=== PATIENT | female | born 1965 | race Caucasian/White ===

== ENCOUNTER 2021-05-28 10:39 | Inpatient (IN) ==
[2021-05-28] MEDS ORDERED: IOPAMIDOL 100 ML BOTTLE IV ONE (10:40)
[2021-05-28] MEDS ORDERED: 0.9 % SODIUM CHLORIDE 1,000 ML IV ONE (10:47)
[2021-05-28] MEDS ORDERED: IBUPROFEN 200 MG TABLET PO ONE (11:07)
--- NOTE | 2021-05-28 11:10 | Emergency Department Note ---
SOB HPI General Chief Complaint: Shortness of Breath/Dyspnea Stated Complaint: SOB Time Seen by Provider: 05/28/21 10:45 Source: patient Mode of arrival: ambulatory Limitations: no limitations History of Present Illness HPI Narrative: Narrative: The patient presents with 3 days of worsening shortness of breath. She had diarrhea and mild vomiting before that but that seems to have resolved. She has a worsening nonproductive cough. She is febrile. She took 975 of acetaminophen and 400 mg of ibuprofen approximately 1 hour prior to coming to the ED. She has a general malaise. She has no known pulmonary problems. She denies chest pain or calf pain. She denies any urinary issues. Related Data Home Medications Medication Instructions Recorded Confirmed losartan 100 mg tablet 100 mg 04/25/18 11/20/18 Previous Rx's Medication Instructions Recorded dexamethasone 6 mg tablet 6 mg PO QDAY 3 Days #3 tab 05/26/21 (Decadron) Allergies Allergy/AdvReac Type Severity Reaction Status Date / Time No Known Drug Allergies Allergy Verified 05/28/21 10:43 Review of Systems ROS ROS Narrative: Narrative: All systems ED: reviewed and negative except as stated. [facility] Narrative Patient History Narrative: Narrative: Medical/Surgical/Family History All Active Problems (Updated 05/28/21 @ 13:50 by Daniele Edge MD) Acute bronchitis (Acute) Acute otitis media with effusion of left ear (Acute) COVID-19 (Acute) Pneumonia due to 2019-nCoV (Acute) Hypoxia (Acute) Sepsis (Acute) Medical History (Updated 05/28/21 @ 13:50 by Daniele Edge MD) Acute bronchitis Social History Smoking Status: Never smoker Alcohol Intake Frequency: does not drink Substance Use: does not use Exam Narrative Narrative: Narrative: General Limitations: no limitations General appearance: Present alert; Absent in no apparent distress (Mild respiratory) Head Head: Present atraumatic and normal inspection Eye Eye: Present normal appearance Neck Neck: Present normal inspection, full ROM and trachea midline Chest Chest: Present normal inspection and symmetric chest wall rise Respiratory Respiratory: Present normal lung sounds bilaterally and respiratory distress (Mild) Cardiovascular Cardiovascular: Present normal rhythm and tachycardia; Absent regular rate Adbominal Abdominal: Present soft; Absent distention or tenderness Extremities Extremities: Present normal inspection and full ROM; Absent pretibial edema, calf tenderness or other (Negative Homans' sign) Back Back: Present full ROM Neurological Neurological: Present alert and oriented X3 Psychiatric Psychiatric: Present normal affect and normal mood Skin Skin: Present warm (WNL) and diaphoretic; Absent dry Course Consultations Consultation #1: I spoke with the hospitalist, Dr. Mann. He agreed to admit but asked us to give dexamethasone and remdesivir. Time: 13:47 Vital Signs Vital signs: Vital Signs Temperature 102.2 F H 05/28/21 10:40 Pulse Rate 120 H 05/28/21 10:40 Respiratory Rate 24 H 05/28/21 10:40 Blood Pressure 185/83 05/28/21 10:40 Pulse Oximetry (%) 80 L 05/28/21 10:40 Temperature 102.2 F H 05/28/21 10:40 Pulse Rate 93 H 05/28/21 13:16 Respiratory Rate 19 05/28/21 13:16 Blood Pressure 129/71 05/28/21 13:16 Pulse Oximetry (%) 90 05/28/21 13:16 MDM MDM Narrative Medical decision making narrative: Narrative: The patient presents with a cough, fever, and dyspnea. Based on vital signs, she has SIRS criteria. I suspect infection so I think she is septic. This could be viral or bacterial. We will get a chest x-ray, blood cultures, lactate, and other appropriate labs. We will test for Covid. We will give an extra dose of ibuprofen for the fever. Patient most likely will need to be admitted to the hospital. Lab Data Result diagrams: 05/28/21 11:05 05/28/21 12:51 Labs: Lab Results 05/28/21 05/28/21 05/28/21 Range/Units 11:05 11:05 11:05 WBC 10.4 TNP (4.5-11.0) K/mcL RBC 3.90 TNP (3.59-5.38) M/mcL Hgb 12.4 TNP (11.2-15.7) g/dL Hct 34.7 TNP (34.1-44.9) % MCV 89.0 TNP (80.0-100.0) fL MCH 31.8 TNP (26.0-34.0) pg MCHC 35.7 TNP (31.0-36.0) g/dL RDW 12.8 TNP (11.5-14.5) % Plt Count 190 TNP (140-440) K/mcL MPV 10.8 H TNP (7.4-10.4) fL Neut % (Auto) 89.3 H (38.0-78.0) % Lymph % (Auto) 8.1 L (15.5-49.0) % [place] % (Auto) 1.7 (1.0-12.0) % Eos % (Auto) 0.7 (0.0-7.0) % Baso % (Auto) 0.2 (0.0-2.0) % Lymph # (Auto) 0.84 L (1.50-4.80) K/mcL [place] # (Auto) 0.18 (0.10-0.90) K/mcL Eos # (Auto) 0.07 (0.00-0.70) K/mcL Baso # (Auto) 0.02 (0.00-0.30) K/mcL Seg Neutrophils % 66 (38-78) % Band Neutrophils % 24 H (0-10) % Lymphocytes % 6 L (15-49) % Monocytes % (Manual) 1 (1-12) % Eosinophils % (Manual) 1 (0-7) % Absolute Neutrophils 9.31 H (1.80-8.00) K/mcL Nucleated RBCs TNP Reactive Lymphocytes 2 (0-2) % Platelet Estimate Normal (Normal) RBC Morphology Normal (Normal) D-Dimer 5.13 H (0.27-0.50) ug/mL VBG Lactic Acid (0.5-2.0) mmol/L POC Creatinine (0.6-1.2) mg/dL Troponin T (<0.03) ng/mL NT-Pro-B Natriuret Pep (<125.0) pg/mL 05/28/21 05/28/21 05/28/21 Range/Units 11:05 11:05 11:15 WBC (4.5-11.0) K/mcL RBC (3.59-5.38) M/mcL Hgb (11.2-15.7) g/dL Hct (34.1-44.9) % MCV (80.0-100.0) fL MCH (26.0-34.0) pg MCHC (31.0-36.0) g/dL RDW (11.5-14.5) % Plt Count (140-440) K/mcL MPV (7.4-10.4) fL Neut % (Auto) (38.0-78.0) % Lymph % (Auto) (15.5-49.0) % [place] % (Auto) (1.0-12.0) % Eos % (Auto) (0.0-7.0) % Baso % (Auto) (0.0-2.0) % Lymph # (Auto) (1.50-4.80) K/mcL [place] # (Auto) (0.10-0.90) K/mcL Eos # (Auto) (0.00-0.70) K/mcL Baso # (Auto) (0.00-0.30) K/mcL Seg Neutrophils % (38-78) % Band Neutrophils % (0-10) % Lymphocytes % (15-49) % Monocytes % (Manual) (1-12) % Eosinophils % (Manual) (0-7) % Absolute Neutrophils (1.80-8.00) K/mcL Nucleated RBCs Reactive Lymphocytes (0-2) % Platelet Estimate (Normal) RBC Morphology (Normal) D-Dimer (0.27-0.50) ug/mL VBG Lactic Acid 0.9 (0.5-2.0) mmol/L POC Creatinine (0.6-1.2) mg/dL Troponin T < 0.01 (<0.03) ng/mL NT-Pro-B Natriuret Pep 255.4 H (<125.0) pg/mL 05/28/21 Range/Units 12:51 WBC (4.5-11.0) K/mcL RBC (3.59-5.38) M/mcL Hgb (11.2-15.7) g/dL Hct (34.1-44.9) % MCV (80.0-100.0) fL MCH (26.0-34.0) pg MCHC (31.0-36.0) g/dL RDW (11.5-14.5) % Plt Count (140-440) K/mcL MPV (7.4-10.4) fL Neut % (Auto) (38.0-78.0) % Lymph % (Auto) (15.5-49.0) % [place] % (Auto) (1.0-12.0) % Eos % (Auto) (0.0-7.0) % Baso % (Auto) (0.0-2.0) % Lymph # (Auto) (1.50-4.80) K/mcL [place] # (Auto) (0.10-0.90) K/mcL Eos # (Auto) (0.00-0.70) K/mcL Baso # (Auto) (0.00-0.30) K/mcL Seg Neutrophils % (38-78) % Band Neutrophils % (0-10) % Lymphocytes % (15-49) % Monocytes % (Manual) (1-12) % Eosinophils % (Manual) (0-7) % Absolute Neutrophils (1.80-8.00) K/mcL Nucleated RBCs Reactive Lymphocytes (0-2) % Platelet Estimate (Normal) RBC Morphology (Normal) D-Dimer (0.27-0.50) ug/mL VBG Lactic Acid (0.5-2.0) mmol/L POC Creatinine 1.3 H (0.6-1.2) mg/dL Troponin T (<0.03) ng/mL NT-Pro-B Natriuret Pep (<125.0) pg/mL ED POC Tests ED POC Tests: JANIE - SARS Antigen Negative EKG Data EKG #1: EKG attestation: Yes I reviewed and interpreted this EKG. and Yes There are no EKG findings of acute coronary syndrome EKG results narrative: Sinus, rate 102, normal axis, QTC 494, OK 147, right bundle branch pattern, no acute ST or T changes concerning for acute infarction CC TIME Critical Care Time Critical Care Time: Yes Total Critical Care Time: 65 Attestation: Without intervention, patient would have had a negative outcome Discharge Plan Patient/Caregiver Discharge Instructions Pt seen by SWINE NUTRITIONIST/PA only: No Clinical Impression: COVID-19, Pneumonia due to 2019-nCoV, Hypoxia, Sepsis Patient Disposition: Xfer As Inpt ([facility]) Condition: Critical Follow up with: Dulce Dominguez MD [Primary Care Provider] - Prescriptions: No Action losartan 100 MG tablet 100 mg 0RF dexamethasone [Decadron] 6 mg tablet 6 mg PO QDAY 3 Days Qty: 3 0RF
--- NOTE | 2021-05-28 11:45 | XRay Report ---
INDICATION: dyspnea TECHNIQUE: AP portable upright chest x-ray COMPARISON: Previous examination dated 05/26/2021 FINDINGS: Lungs:Increased infiltrates bilaterally. Appearance remains consistent with covid pneumonia with mild interval progression Heart, vascular:No significant cardiomegaly. Pulmonary vascularity is normal. No pulmonary edema or pulmonary congestion Mediastinum, linda:No mediastinal widening. No hilar mass Pleura:Elevated right hemidiaphragm, essentially unchanged Skeletal:Negative. IMPRESSION: Increased pulmonary parenchymal infiltrates consistent with covid pneumonia Interpreted and Authenticated by: Ming Musa 05/28/21
[2021-05-28 12:14] LABS: Basophils # (Auto) 0.02 K/mcL (0.00-0.30); Basophils % (Auto) 0.2 % (0.0-2.0); Eosinophils # (Auto) 0.07 K/mcL (0.00-0.70); Eosinophils % (Auto) 0.7 % (0.0-7.0); Hematocrit 34.7 % (34.1-44.9); Hemoglobin 12.4 g/dL (11.2-15.7); Lymphocytes # (Auto) 0.84 K/mcL (1.50-4.80); Lymphocytes % (Auto) 8.1 % (15.5-49.0); Mean Corpuscular HGB Conc 35.7 g/dL (31.0-36.0); Mean Platelet Volume 10.8 fL (7.4-10.4); Monocytes # (Auto) 0.18 K/mcL (0.10-0.90); Monocytes % (Auto) 1.7 % (1.0-12.0); Neutrophils % (Auto) 89.3 % (38.0-78.0); Platelet Count 190 K/mcL (140-440); Red Cell Distribution Width 12.8 % (11.5-14.5); WBC 10.4 K/mcL (4.5-11.0)
[2021-05-28 12:24] LABS: proBNP 255.4 pg/mL (<125.0)
--- NOTE | 2021-05-28 12:58 | EKG ---
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
[2021-05-28 13:05] LABS: Band Neutrophils % 24 % (0-10); Eosinophils % (Manual) 1 % (0-7); Lymphocytes % 6 % (15-49); Monocytes % (Manual) 1 % (1-12); Platelet Estimate NORMAL (Normal); RBC Morphology NORMAL (Normal); Reactive Lymphocytes 2 % (0-2); Segmented Neutrophils % 66 % (38-78)
--- NOTE | 2021-05-28 13:17 | Cat Scan Report ---
INDICATION: hypoxic. Covid pneumonia COMPARISON: None TECHNIQUE: Axial images obtained through the chest. 55ml Isovue 370 injected intravenously, and scanning was performed during pulmonary arterial phase. Sagittally and coronally reformatted images were obtained. MIP reformatted images. FINDINGS: Lungs:Bilateral pulmonary parenchymal infiltrates consistent with covid pneumonia. There is a small left pleural effusion which is an atypical finding. Mediastinum, vascular:Main pulmonary artery, right pulmonary artery, left pulmonary artery are negative. No intraluminal filling defects. No lobar, segmental, or subsegmental emboli. Thoracic aorta is negative. No aneurysmal dilatation. Main pulmonary artery is not enlarged No pathologic mediastinal or hilar adenopathy Heart:No cardiomegaly. No pericardial effusion. Mild reflux of contrast material into the inferior vena cava. Pleura:Small left pleural effusion Axilla, supraclavicular regions, chest wall:No pathologic axillary or supraclavicular adenopathy. Musculoskeletal:Negative thoracic spine. No compression fracture. No lytic lesion. No rib or sternal lesions Upper Abdomen:Negative IMPRESSION: 1. Negative pulmonary CTA. No pulmonary embolism 2. Bilateral pulmonary parenchymal infiltrates consistent with covid pneumonia 3. Very small left pleural effusion The exam was performed using radiation dose optimization techniques including, but not limited to, automated exposure control, adjustment of the mA and/or kV according to patient size and use of iterative reconstruction technique. Interpreted and Authenticated by: Ming Musa 05/28/21
[2021-05-28 13:33] LABS: POC Creatinine 1.3 mg/dL (0.6-1.2)
[2021-05-28] MEDS ORDERED: POLYETHYLENE GLYCOL 3350 17 GM PACKET PO PRN (13:46)
[2021-05-28] MEDS ORDERED: POTASSIUM CHLORIDE 40 MEQ in DEXTROSE 5% IN WATER 500 ML IV PRN (13:46)
[2021-05-28] MEDS ORDERED: METOPROLOL TARTRATE 5 MG/5 ML VIAL IV PRN (13:46)
[2021-05-28] MEDS ORDERED: LEVALBUTEROL 0.63 MG/3 ML AMPUL.NEB NEB PRN (13:46)
[2021-05-28] MEDS ORDERED: DEXAMETHASONE 10 MG/ML VIAL IV ONE (13:46)
[2021-05-28] MEDS ORDERED: BISACODYL 10 MG SUPP.RECT PR PRN (13:46)
[2021-05-28] MEDS ORDERED: hydrALAZINE 20 MG/ML VIAL IV PRN (13:46)
[2021-05-28] MEDS ORDERED: ALBUTEROL SULFATE 200 PUFF INHALER INH PRN (13:46)
[2021-05-28] MEDS ORDERED: ONDANSETRON 4 MG ODT TABLET SL PRN (13:46)
[2021-05-28] MEDS ORDERED: REMDESIVIR 200 MG in 0.9 % SODIUM CHLORIDE 250 ML IV ONE ×2 (13:46→16:00)
[2021-05-28] MEDS ORDERED: ACETAMINOPHEN 650 MG/65 ML BAG IV PRN (13:46)
[2021-05-28] MEDS ORDERED: MAGNESIUM SULFATE 2 GM/50 ML BAG IV PRN (13:46)
[2021-05-28] MEDS ORDERED: ONDANSETRON 4 MG/2 ML VIAL IV PRN (13:46)
--- NOTE | 2021-05-28 13:52 | Internal Med History&Physical ---
HPI History of Present Illness Patient information: Note initiated : 05/28/21 at 1:50 pm Service Date, if different from initiated Date: [] Patient: Maryjane Ireland a 55 y/o F admitted on for SOB . Chief Complaint: [] History of present illness: Ms. Ireland is a 55 year old F with a history of hypertension who was recently diagnosed with Covid pneumonia on 05/24 now presents with worsening shortness of breath, fatigue, malaise, associated diarrhea and profound weakness. Patient completed [place] vaccination in June but has not taken a booster yet. She endorses to profound weakness limiting her functionality. Initial work-up in the ER was consistent with hypoxia requiring 4 L oxygen. Patient was started on dexamethasone/remdesivir and agrees for [facility] service was consulted for admission in light of above At the time of my evaluation patient is alert and oriented. She denies active distress and able to endorse history as above. Her symptoms started roughly 10 days prior to presentation with multiple family members affected. She denies joint pain, rash, headache, photophobia, productive sputum Review of systems 10 point review system was performed and is negative except for ones discussed above PFSH PFSH All Active Problems (Updated 05/28/21 @ 13:50 by Daniele Edge MD) Acute bronchitis (Acute) Acute otitis media with effusion of left ear (Acute) COVID-19 (Acute) Pneumonia due to 2019-nCoV (Acute) Hypoxia (Acute) Sepsis (Acute) Medical History (Updated 05/28/21 @ 13:50 by Daniele Edge MD) Acute bronchitis Social History (Updated 11/20/18 @ 11:03 by Eneida Baker PA-C) alcohol intake frequency: does not drink substance use type: does not use MEDS/ALLERGIES Home Medications and Allergies Home Medications Medication Instructions Recorded Confirmed Type losartan 100 mg tablet 100 mg 04/25/18 11/20/18 History dexamethasone 6 mg tablet 6 mg PO QDAY 3 Days #3 tab 05/26/21 Rx (Decadron) Allergies Allergy/AdvReac Type Severity Reaction Status Date / Time No Known Drug Allergies Allergy Verified 05/28/21 10:43 EXAM Constitutional Vitals: Temp Pulse Resp BP Pulse Ox 102.2 F H 85 23 H 140/73 92 05/28/21 10:40 05/28/21 13:47 05/28/21 13:47 05/28/21 13:47 05/28/21 13:47 Anxious, obese with a BMI 34 Head normocephalic Oral cavity moist No ear or nose discharge Eye no subconjunctival pallor, movement symmetrical S1-S2 occasionally irregular Nonlabored breathing on 4 L oxygen to maintain sats 92 Nondistended nontender abdomen Lower extremity no cyanosis clubbing or joint swelling Skin no suspicious lesion Psych anxious but no hallucination Neuro GCS 15 DATA Data Completed and Pending Labs: Labs from last 24 hours 05/28/21 05/28/21 05/28/21 12:51 11:15 11:05 WBC RBC Hgb Hct MCV MCH MCHC RDW Plt Count MPV Neut % (Auto) Lymph % (Auto) [place] % (Auto) Eos % (Auto) Baso % (Auto) Lymph # (Auto) [place] # (Auto) Eos # (Auto) Baso # (Auto) Seg Neutrophils % Band Neutrophils % Lymphocytes % Monocytes % (Manual) Eosinophils % (Manual) Absolute Neutrophils Nucleated RBCs Reactive Lymphocytes Platelet Estimate RBC Morphology D-Dimer VBG Lactic Acid 0.9 Sodium Pending Potassium Pending Chloride Pending Carbon Dioxide Pending Anion Gap Pending BUN Pending Creatinine Pending POC Creatinine 1.3 H GFR Calculation Pending Glucose Pending Calcium Pending Total Bilirubin Pending AST Pending ALT Pending Alkaline Phosphatase Pending Troponin T NT-Pro-B Natriuret Pep 255.4 H Total Protein Pending Albumin Pending Globulin Pending Albumin/Globulin Ratio Pending 05/28/21 05/28/21 05/28/21 11:05 11:05 11:05 WBC TNP RBC TNP Hgb TNP Hct TNP MCV TNP MCH TNP MCHC TNP RDW TNP Plt Count TNP MPV TNP Neut % (Auto) Lymph % (Auto) [place] % (Auto) Eos % (Auto) Baso % (Auto) Lymph # (Auto) [place] # (Auto) Eos # (Auto) Baso # (Auto) Seg Neutrophils % 66 Band Neutrophils % 24 H Lymphocytes % 6 L Monocytes % (Manual) 1 Eosinophils % (Manual) 1 Absolute Neutrophils Nucleated RBCs TNP Reactive Lymphocytes 2 Platelet Estimate Normal RBC Morphology Normal D-Dimer 5.13 H VBG Lactic Acid Sodium Potassium Chloride Carbon Dioxide Anion Gap BUN Creatinine POC Creatinine GFR Calculation Glucose Calcium Total Bilirubin AST ALT Alkaline Phosphatase Troponin T < 0.01 NT-Pro-B Natriuret Pep Total Protein Albumin Globulin Albumin/Globulin Ratio 05/28/21 11:05 WBC 10.4 RBC 3.90 Hgb 12.4 Hct 34.7 MCV 89.0 MCH 31.8 MCHC 35.7 RDW 12.8 Plt Count 190 MPV 10.8 H Neut % (Auto) 89.3 H Lymph % (Auto) 8.1 L [place] % (Auto) 1.7 Eos % (Auto) 0.7 Baso % (Auto) 0.2 Lymph # (Auto) 0.84 L [place] # (Auto) 0.18 Eos # (Auto) 0.07 Baso # (Auto) 0.02 Seg Neutrophils % Band Neutrophils % Lymphocytes % Monocytes % (Manual) Eosinophils % (Manual) Absolute Neutrophils 9.31 H Nucleated RBCs Reactive Lymphocytes Platelet Estimate RBC Morphology D-Dimer VBG Lactic Acid Sodium Potassium Chloride Carbon Dioxide Anion Gap BUN Creatinine POC Creatinine GFR Calculation Glucose Calcium Total Bilirubin AST ALT Alkaline Phosphatase Troponin T NT-Pro-B Natriuret Pep Total Protein Albumin Globulin Albumin/Globulin Ratio A/P Narrative A/P Narrative: * COVID-19 pneumonia-PCU admission/initiate remdesivir/dexamethasone, thrombosis prophylaxis/coag and inflammatory markers, maintain COVID-19 precautions, consent for IL 6 Inhibitor. * Acute hypoxic respiratory failure secondary to Covid pneumonia. Initiate with low flow oxygen/pulmonary toilet/ Prone ventilation and transition to noninvasive mechanical ventilation if deteriorating oxygenation, ABG/interval chest imaging * Acute leg injury-secondary to multifocal pneumonia. * Hypertension-hold home medication until systolics over 140 * Prophylaxis Plan * Inpatient PCU admission * Prone ventilation and NIV if indicated and worsening Covid pneumonia * Serial imaging/ABG/coag inflammatory markers/ * Remdesivir/dexamethasone/empiric antibiotics/thrombosis prophylaxis * Pre-existing medical condition management home meds * Directed therapies/nutrition support/early mobilization * Discharge planning per case management Time Spent With Patient Time: Total time spent is greater than 50% in coordination of care (as documented) at patient's floor/unit and/or counseling patient: Total time spent with greater than 50% in coordination of care (as documented) at patient's floor/unit and/or counseling patient:: Greater than 35 minutes
[2021-05-28 14:27] LABS: ALT/SGPT 110 U/L (<40); AST/SGOT 61 U/L (<32); Albumin/Globulin Ratio 0.9 (1.0-2.3); Alkaline Phosphatase 168 U/L (39-117); Bilirubin,Total 0.4 mg/dL (0.1-1.0); Blood Urea Nitrogen 14 mg/dL (6-20); Calcium 8.2 mg/dL (8.6-10.4); Carbon Dioxide 20 mmol/L (22-30); Chloride 103 mmol/L (96-108); Globulin 3.4 gm/dL (2.2-3.7); Glomerular Filtration Rate 57; Glucose 128 mg/dL (70-105)
[2021-05-28] MEDS: 0.9 % SODIUM CHLORIDE 10 ML SYRINGE IV SCH ×2 (15:59→22:06)
[2021-05-28] MEDS: AZITHROMYCIN 500 MG in DEXTROSE 5% IN WATER 250 ML IV SCH (16:11)
[2021-05-28] MEDS: cefTRIAXone 2 GM in DEXTROSE 5% IN WATER 50 ML IV SCH (16:12)
[2021-05-28] MEDS: FUROSEMIDE 40 MG/4 ML VIAL IV SCH (16:14)
[2021-05-28] MEDS ORDERED: TOCILIZUMAB 800 MG in 0.9 % SODIUM CHLORIDE 60 ML IV ONE (17:00)
[2021-05-28] MEDS: guaiFENesin/CODEINE 10 ML UDC PO PRN (19:37)
[2021-05-28] MEDS ORDERED: HEPARIN 5,000 UNIT/ML VIAL SQ SCH (21:00)
[2021-05-28] MEDS: ENOXAPARIN 30 MG/0.3 ML SYRINGE SQ SCH (21:20)
[2021-05-28] MEDS: MELATONIN 3 MG TABLET PO PRN (21:20)
[2021-05-28] MEDS: DOCUSATE SODIUM 100 MG CAPSULE PO SCH (21:21)
[2021-05-28] MEDS: SENNOSIDES/DOCUSATE SODIUM 1 TAB TABLET PO SCH (21:21)
[2021-05-28] MEDS: ACETAMINOPHEN 325 MG TABLET PO PRN (21:24)
[2021-05-29] MEDS: 0.9 % SODIUM CHLORIDE 10 ML SYRINGE IV SCH ×3 (05:48→21:51)
[2021-05-29 07:22] LABS: Basophils # (Auto) 0.02 K/mcL (0.00-0.30); Basophils % (Auto) 0.3 % (0.0-2.0); Eosinophils # (Auto) 0.02 K/mcL (0.00-0.70); Eosinophils % (Auto) 0.3 % (0.0-7.0); Hematocrit 34.9 % (34.1-44.9); Hemoglobin 12.3 g/dL (11.2-15.7); Lymphocytes # (Auto) 0.81 K/mcL (1.50-4.80); Lymphocytes % (Auto) 10.7 % (15.5-49.0); Mean Cell Volume 91.8 fL (80.0-100.0); Mean Corpuscular HGB Conc 35.2 g/dL (31.0-36.0); Mean Platelet Volume 10.8 fL (7.4-10.4); Monocytes # (Auto) 0.09 K/mcL (0.10-0.90); Monocytes % (Auto) 1.2 % (1.0-12.0); Platelet Count 195 K/mcL (140-440); Red Cell Distribution Width 13.1 % (11.5-14.5); WBC 7.6 K/mcL (4.5-11.0)
[2021-05-29] MEDS: FUROSEMIDE 40 MG/4 ML VIAL IV SCH ×2 (07:40→16:32)
[2021-05-29 07:47] LABS: ALT/SGPT 103 U/L (<40); AST/SGOT 48 U/L (<32); Albumin 3.1 gm/dL (3.2-5.2); Albumin/Globulin Ratio 0.8 (1.0-2.3); Alkaline Phosphatase 159 U/L (39-117); Bilirubin,Direct < 0.2 mg/dL (0-0.3); Bilirubin,Total 0.2 mg/dL (0.1-1.0); Blood Urea Nitrogen 21 mg/dL (6-20); Carbon Dioxide 25 mmol/L (22-30); Chloride 103 mmol/L (96-108); Globulin 3.9 gm/dL (2.2-3.7); Glomerular Filtration Rate 63; Glucose 141 mg/dL (70-105); Lactate Dehydrogenase 385 U/L (135-225); Phosphorous 4.5 mg/dL (2.5-4.5); Triglycerides 198 mg/dL (<150); Uric Acid 6.4 mg/dL (2.5-8.0)
--- NOTE | 2021-05-29 09:20 | Internal Med Progress Note ---
SUBJECTIVE Subjective Patient information: Note initiated : 05/29/21 at 9:17 am Service Date, if different from initiated Date: [] Patient: Maryjane Ireland a 55 y/o F admitted on 05/28/21 for SOB . Chief Complaint: [] Interval history: Ms. Ireland is a 55 year old F with a history of hypertension who was recently diagnosed with Covid pneumonia on 05/24 now presents with worsening shortness of breath, fatigue, malaise, associated diarrhea and profound weakness. Patient completed [place] vaccination in June but has not taken a booster yet. She endorses to profound weakness limiting her functionality. Initial work-up in the ER was consistent with hypoxia requiring 4 L oxygen. Patient was started on dexamethasone/remdesivir and agrees for [facility] service was consulted for admission in light of above At the time of my evaluation patient is alert and oriented. She denies active distress and able to endorse history as above. Her symptoms started roughly 10 days prior to presentation with multiple family members affected. She denies joint pain, rash, headache, photophobia, productive sputum 05/29-patient seen in room, on 5 L oxygen. Appears stable with minimal worsening of hypoxia since admission. Status post Actemra 05/28, on remdesivir/dexamethasone. Creatinine down from 1.3-1, LFTs elevated downtrending. Procalcitonin 1.61, continue antibiotic coverage. Close hemodynamic monitoring. Constitutional Vitals: Vital Signs Temp Pulse Resp BP Pulse Ox 98.5 F 87 20 121/76 94 05/29/21 08:17 05/29/21 08:17 05/29/21 08:17 05/29/21 05:01 05/29/21 08:17 Period Temp Pulse Resp BP Sys/Lott Pulse Ox Last 24 Hr 96.9 F-102.2 F 70-120 19-32 99-185/67-83 80-95 Intake and Output 05/28/21 05/29/21 05/29/21 21:59 05:59 13:59 Intake Total 400 120 Output Total 1950 250 350 Balance -1550 -250 -230 Weight 93.894 kg Morbidly obese Alert oriented Minimal labored breathing on 5 L oxygen No telemetry events No lymphedema Intake & Output: Intake & Output 05/28/21 05/29/21 05/29/21 21:59 05:59 13:59 Intake Total 400 120 Output Total 1950 250 350 Balance -1550 -250 -230 Weight 93.894 kg Intake: IV 400 Veklury 200 mg In Sodium 250 Chloride 0.9% 250 ml @ 500 mls/ hr IV ONCE ONE Rx#:[id number] Actemra 800 mg In Sodium 100 Chloride 0.9% 60 ml @ 100 mls/ hr IV ONCE ONE Rx#:[id number] Rocephin 2 gm In Dextrose 5% in 50 Water 50 ml @ 100 mls/hr IV DAILY [facility] Rx#:[id number] Oral 120 Output: Void Amount 1950 250 Urine/Stool Mix 350 Other: Meal Breakfast Percent of Meal Consumed 100% Feeding Ability Independent Urine Appearance Clear Clear Urine Color Bright Yellow Dark Yellow Stool Color Brown Stool Consistency Liquid OBJ DATA Labs CBC & Chem 7: 05/29/21 05:07 05/29/21 05:07 Labs: Abnormal Lab Results 05/29/21 05/29/21 05/28/21 05:07 05:07 12:51 MPV 10.8 H Neut % (Auto) 87.5 H Lymph % (Auto) 10.7 L Lymph # (Auto) 0.81 L [place] # (Auto) 0.09 L Band Neutrophils % Lymphocytes % Absolute Neutrophils D-Dimer Carbon Dioxide BUN 21 H POC Creatinine Glucose 141 H Calcium GGT 187 H AST 48 H ALT 103 H Alkaline Phosphatase 159 H Lactate Dehydrogenase 385 H C-Reactive Protein NT-Pro-B Natriuret Pep Albumin 3.1 L Globulin 3.9 H Albumin/Globulin Ratio 0.8 L Triglycerides 198 H Procalcitonin 1.61 H 05/28/21 05/28/21 05/28/21 12:51 12:51 11:05 MPV Neut % (Auto) Lymph % (Auto) Lymph # (Auto) [place] # (Auto) Band Neutrophils % Lymphocytes % Absolute Neutrophils D-Dimer Carbon Dioxide 20 L BUN POC Creatinine 1.3 H Glucose 128 H Calcium 8.2 L GGT AST 61 H ALT 110 H Alkaline Phosphatase 168 H Lactate Dehydrogenase C-Reactive Protein 32.50 H NT-Pro-B Natriuret Pep 255.4 H Albumin 3.0 L Globulin Albumin/Globulin Ratio 0.9 L Triglycerides Procalcitonin 05/28/21 05/28/21 05/28/21 11:05 11:05 11:05 MPV 10.8 H Neut % (Auto) 89.3 H Lymph % (Auto) 8.1 L Lymph # (Auto) 0.84 L [place] # (Auto) Band Neutrophils % 24 H Lymphocytes % 6 L Absolute Neutrophils 9.31 H D-Dimer 5.13 H Carbon Dioxide BUN POC Creatinine Glucose Calcium GGT AST ALT Alkaline Phosphatase Lactate Dehydrogenase C-Reactive Protein NT-Pro-B Natriuret Pep Albumin Globulin Albumin/Globulin Ratio Triglycerides Procalcitonin Meds: Medications Acetaminophen (Acetaminophen 325 Mg Tablet) 650 mg PO Q4-6HP PRN; Protocol PRN Reason: Per Pain Protocol/Fever > 101 Last Admin: 05/28/21 21:24 Dose: 650 mg Documented by: Albuterol Sulfate (Albuterol Sulfate 200 Puff Inhaler) 1 - 2 puff INH Q4HP PRN PRN Reason: Shortness Of Breath Bisacodyl (Bisacodyl 10 Mg Supp.Rect) 10 mg SC Q2-3DAYS PRN PRN Reason: Constipation Dexamethasone (Dexamethasone 4 Mg Tablet) 6 mg PO DAILY [facility] Docusate Sodium (Docusate Sodium 100 Mg Capsule) 100 mg PO BID [facility] Last Admin: 05/28/21 21:21 Dose: Not Given Documented by: Enoxaparin Sodium (Enoxaparin 30 Mg/0.3 Ml Syringe) 30 mg SQ BID [facility] Last Admin: 05/28/21 21:20 Dose: 30 mg Documented by: Furosemide (Furosemide 40 Mg/4 Ml Vial) 20 mg IV BIDD [facility] Last Admin: 05/29/21 07:40 Dose: 20 mg Documented by: Guaifenesin/Codeine Phosphate (Guaifenesin/Codeine 10 Ml Udc) 10 ml PO Q4HP PRN PRN Reason: Cough Last Admin: 05/28/21 19:37 Dose: 10 ml Documented by: Hydralazine HCl (Hydralazine 20 Mg/Ml Vial) 10 mg IV Q4-6HP PRN PRN Reason: Hypertension Azithromycin 500 mg/ Dextrose 250 mls @ 250 mls/hr IV DAILY@1100 [facility]; Protocol Stop: 05/30/21 11:59 Last Admin: 05/28/21 16:11 Dose: 250 mls/hr Documented by: REMDESIVIR 100 mg/ Sodium (Chloride) 250 mls @ 500 mls/hr IV DAILY@1200 [facility] Stop: 06/01/21 12:29 Potassium Chloride 40 meq/ (Dextrose) 520 mls @ 130 mls/hr IV UD PRN PRN Reason: K+ = or < 3.5 Acetaminophen (Ofirmev) 650 mg in 65 mls @ 130 mls/hr IV Q6HP PRN; Protocol PRN Reason: Per Pain Protocol/Fever > 101 Magnesium Sulfate (Magnesium Sulfate) 2 gm in 50 mls @ 50 mls/hr IV UD PRN PRN Reason: MG = or < 1.7 Ceftriaxone Sodium 2 gm/ (Dextrose) 50 mls @ 100 mls/hr IV DAILY [facility]; Protocol Last Infusion: 05/28/21 16:47 Dose: Infused Documented by: Iron Carb/Multivit/[employer]/Folic Acid (Multivit,Ther Iron,Ca,Fa & Min 1 Tablet) 1 tab PO DAILY [facility] Levalbuterol HCl (Levalbuterol 0.63 Mg/3 Ml Ampul.Neb) 0.63 mg NEB Q4HP PRN PRN Reason: Shortness Of Breath Melatonin (Melatonin 3 Mg Tablet) 3 mg PO HSP PRN PRN Reason: Insomnia Last Admin: 05/28/21 21:20 Dose: 3 mg Documented by: Metoprolol Tartrate (Metoprolol Tartrate 5 Mg/5 Ml Vial) 5 mg IV Q5M PRN PRN Reason: Heart Rate > 140 bpm Ondansetron HCl (Ondansetron 4 Mg Odt Tablet) 4 mg SL Q4-6HP PRN; Protocol PRN Reason: Nausea And Vomiting Ondansetron HCl (Ondansetron 4 Mg/2 Ml Vial) 4 mg IV Q4-6HP PRN; Protocol PRN Reason: Nausea And Vomiting Polyethylene Glycol (Polyethylene Glycol 3350 17 Gm Packet) 17 gm PO DAILYP PRN PRN Reason: Constipation Senna/Docusate Sodium (Sennosides/Docusate Sodium 1 Tab Tablet) 1 tab PO HS [facility] Last Admin: 05/28/21 21:21 Dose: Not Given Documented by: Sodium Chloride (0.9 % Sodium Chloride 10 Ml Syringe) 10 ml IV Q8 NO[facility] Last Admin: 05/29/21 05:48 Dose: 10 ml Documented by: A/P Narrative A/P Narrative: * COVID-19 pneumonia-hospice Actemra 05/28, continue remdesivir dexamethasone/gentle diuresis. * Acute hypoxic respiratory failure secondary to Covid pneumonia. On 5 L oxygen. Transition to high flow if clinical deterioration noted. ABG/interval chest imaging * Acute lung injury-secondary to Covid pneumonia. * Hypertension-restart home medication once systolics over 140 * Prophylaxis twice daily enoxaparin Plan * Prone ventilation and NIV if indicated and worsening Covid pneumonia * Serial imaging/ABG * Remdesivir/dexamethasone/empiric antibiotics/thrombosis prophylaxis * Pre-existing medical condition management home meds * Directed therapies/nutrition support/early mobilization * Discharge planning per case management Time Spent With Patient Total time spent with greater than 50% in coordination of care (as documented) at patient's floor/unit and/or counseling patient:: Greater than 35 minutes QUALITY VTE Deep Vein Thrombosis/Pulmonary Embolism Present on Admission: No
[2021-05-29] MEDS ORDERED: FLU VACC QS2021-22(6MOS UP)/PF 60 MCG/0.5 ML SYRINGE IM ONE (10:00)
[2021-05-29] MEDS: DEXAMETHASONE 4 MG TABLET PO SCH (10:12)
[2021-05-29] MEDS: cefTRIAXone 2 GM in DEXTROSE 5% IN WATER 50 ML IV SCH (10:12)
[2021-05-29] MEDS: MULTIVIT,THER IRON,CA,FA & MIN 1 TABLET PO SCH (10:12)
[2021-05-29] MEDS: DOCUSATE SODIUM 100 MG CAPSULE PO SCH ×2 (10:13→21:50)
[2021-05-29] MEDS: ENOXAPARIN 30 MG/0.3 ML SYRINGE SQ SCH ×2 (10:13→21:50)
[2021-05-29] MEDS: AZITHROMYCIN 500 MG in DEXTROSE 5% IN WATER 250 ML IV SCH (11:13)
[2021-05-29 11:25] LABS: Neutrophils % (Auto) 87.5 % (38.0-78.0)
[2021-05-29] MEDS: ACETAMINOPHEN 325 MG TABLET PO PRN ×2 (11:55→21:48)
[2021-05-29] MEDS: REMDESIVIR 100 MG in 0.9 % SODIUM CHLORIDE 250 ML IV SCH (12:24)
[2021-05-29] MEDS: MELATONIN 3 MG TABLET PO PRN (21:48)
[2021-05-29] MEDS: SENNOSIDES/DOCUSATE SODIUM 1 TAB TABLET PO SCH (21:50)
[2021-05-29] MEDS: guaiFENesin/CODEINE 10 ML UDC PO PRN (21:50)
[2021-05-30] MEDS: 0.9 % SODIUM CHLORIDE 10 ML SYRINGE IV SCH ×3 (05:37→21:04)
--- NOTE | 2021-05-30 06:51 | XRay Report ---
INDICATION: covid TECHNIQUE: AP portable semiupright chest x-ray COMPARISON: Previous chest x-rays dated 05/28/2021, 05/26/2021 FINDINGS: Lungs:Bilateral pulmonary parenchymal infiltrates are slightly worse than on previous examination. Appearance remains consistent with covid pneumonia. Heart, vascular:No significant cardiomegaly. Pulmonary vascularity is normal. No pulmonary edema or pulmonary congestion Mediastinum, linda:No mediastinal widening. No hilar mass Pleura:No pleural fluid. No pleural-based mass or calcification Skeletal:Negative. IMPRESSION: 1. Bilateral infiltrates consistent with covid pneumonia 2. Slight interval worsening since 05/28/2021 Interpreted and Authenticated by: Ming Musa 05/30/21
[2021-05-30 07:19] LABS: Basophils # (Auto) 0.04 K/mcL (0.00-0.30); Basophils % (Auto) 0.6 % (0.0-2.0); Eosinophils # (Auto) 0.12 K/mcL (0.00-0.70); Eosinophils % (Auto) 1.7 % (0.0-7.0); Hematocrit 33.7 % (34.1-44.9); Hemoglobin 11.7 g/dL (11.2-15.7); Lymphocytes # (Auto) 1.69 K/mcL (1.50-4.80); Lymphocytes % (Auto) 24.4 % (15.5-49.0); Mean Cell Volume 91.1 fL (80.0-100.0); Mean Corpuscular HGB Conc 34.7 g/dL (31.0-36.0); Mean Platelet Volume 11.1 fL (7.4-10.4); Monocytes # (Auto) 0.34 K/mcL (0.10-0.90); Monocytes % (Auto) 4.9 % (1.0-12.0); Platelet Count 228 K/mcL (140-440); WBC 6.9 K/mcL (4.5-11.0)
[2021-05-30] MEDS: FUROSEMIDE 40 MG/4 ML VIAL IV SCH (07:37)
[2021-05-30] MEDS: DOCUSATE SODIUM 100 MG CAPSULE PO SCH ×2 (07:39→21:02)
[2021-05-30 07:44] LABS: ALT/SGPT 83 U/L (<40); AST/SGOT 44 U/L (<32); Albumin 3.2 gm/dL (3.2-5.2); Albumin/Globulin Ratio 0.9 (1.0-2.3); Alkaline Phosphatase 146 U/L (39-117); Bilirubin,Direct < 0.2 mg/dL (0-0.3); Bilirubin,Total 0.3 mg/dL (0.1-1.0); Blood Urea Nitrogen 29 mg/dL (6-20); Carbon Dioxide 25 mmol/L (22-30); Chloride 102 mmol/L (96-108); Globulin 3.5 gm/dL (2.2-3.7); Glomerular Filtration Rate 72; Glucose 128 mg/dL (70-105); Lactate Dehydrogenase 441 U/L (135-225); Phosphorous 3.9 mg/dL (2.5-4.5); Triglycerides 180 mg/dL (<150); Uric Acid 6.9 mg/dL (2.5-8.0)
[2021-05-30] MEDS: cefTRIAXone 2 GM in DEXTROSE 5% IN WATER 50 ML IV SCH (08:16)
[2021-05-30] MEDS: ENOXAPARIN 30 MG/0.3 ML SYRINGE SQ SCH ×2 (08:16→21:03)
[2021-05-30] MEDS: DEXAMETHASONE 4 MG TABLET PO SCH (08:17)
[2021-05-30] MEDS: MULTIVIT,THER IRON,CA,FA & MIN 1 TABLET PO SCH (08:17)
[2021-05-30] MEDS: ACETAMINOPHEN 325 MG TABLET PO PRN ×2 (08:57→18:35)
[2021-05-30] MEDS: AZITHROMYCIN 500 MG in DEXTROSE 5% IN WATER 250 ML IV SCH (09:09)
--- NOTE | 2021-05-30 10:07 | Internal Med Progress Note ---
SUBJECTIVE Subjective Patient information: Note initiated : 05/30/21 at 10:03 am Service Date, if different from initiated Date: [] Patient: Maryjane Ireland a 55 y/o F admitted on 05/28/21 for SOB . Chief Complaint: [] Interval history: Ms. Ireland is a 55 year old F with a history of hypertension who was recently diagnosed with Covid pneumonia on 05/24 now presents with worsening shortness of breath, fatigue, malaise, associated diarrhea and profound weakness. Patient completed [place] vaccination in June but has not taken a booster yet. She endorses to profound weakness limiting her functionality. Initial work-up in the ER was consistent with hypoxia requiring 4 L oxygen. Patient was started on dexamethasone/remdesivir and agrees for [facility] service was consulted for admission in light of above At the time of my evaluation patient is alert and oriented. She denies active distress and able to endorse history as above. Her symptoms started roughly 10 days prior to presentation with multiple family members affected. She denies joint pain, rash, headache, photophobia, productive sputum 05/29-patient seen in room, on 5 L oxygen. Appears stable with minimal worsening of hypoxia since admission. Status post Actemra 05/28, on remdesivir/dexamethasone. Creatinine down from 1.3-1, LFTs elevated downtrending. Procalcitonin 1.61, continue antibiotic coverage. Close hemodynamic monitoring. 05/30-patient seen in room sitting on the edge of bed, currently on 5 L oxygen. Continue antibiotics in the setting of multifocal infiltrates/elevated procalcitonin. On remdesivir/dexamethasone, status post Actemra, transfer to medical floor on continue telemetry monitoring. Slight clinical improvement noted. No fever chills, LFTs downtrending, continue nutrition support/therapies Constitutional Vitals: Vital Signs Temp Pulse Resp BP Pulse Ox 97.6 F 77 20 140/90 94 05/30/21 08:02 05/30/21 09:02 05/30/21 09:02 05/30/21 09:02 05/30/21 09:02 Period Temp Pulse Resp BP Sys/Lott Pulse Ox Last 24 Hr 97.1 F-99.4 F 61-106 16-43 127-160/77-99 92-97 Intake and Output 05/29/21 05/30/21 05/30/21 21:59 05:59 13:59 Intake Total 960 360 530 Output Total 850 200 Balance 110 160 530 Weight 94.376 kg Alert oriented Minimal labored breathing on 5 L oxygen No lymphedema No anxiety Intake & Output: Intake & Output 05/29/21 05/30/21 05/30/21 21:59 05:59 13:59 Intake Total 960 360 530 Output Total 850 200 Balance 110 160 530 Weight 94.376 kg Intake: Nourishment/Supplement quantity 240 (ml) IV 50 Rocephin 2 gm In Dextrose 5% in 50 Water 50 ml @ 100 mls/hr IV DAILY [facility] Rx#:[id number] Oral 720 360 480 Output: Void Amount 500 Urine/Stool Mix 350 200 Other: Meal Dinner Breakfast Percent of Meal Consumed 100% 100% Feeding Ability Independent Independent Nourishment/Supplement name ensure Stool Size Moderate Stool Color Green Stool Consistency Liquid Watery # Bowel Movements 1 OBJ DATA Labs CBC & Chem 7: 05/30/21 05:10 05/30/21 05:10 Labs: Abnormal Lab Results 05/30/21 05/30/21 05/29/21 05:10 05:10 05:07 Hct 33.7 L MPV 11.1 H Neut % (Auto) Lymph % (Auto) Lymph # (Auto) [place] # (Auto) Band Neutrophils % Lymphocytes % Absolute Neutrophils D-Dimer Carbon Dioxide BUN 29 H 21 H POC Creatinine Glucose 128 H 141 H Calcium Magnesium 2.6 H GGT 163 H 187 H AST 44 H 48 H ALT 83 H 103 H Alkaline Phosphatase 146 H 159 H Lactate Dehydrogenase 441 H 385 H C-Reactive Protein NT-Pro-B Natriuret Pep Albumin 3.1 L Globulin 3.9 H Albumin/Globulin Ratio 0.9 L 0.8 L Triglycerides 180 H 198 H Procalcitonin 05/29/21 05/28/21 05/28/21 05:07 12:51 12:51 Hct MPV 10.8 H Neut % (Auto) 87.5 H Lymph % (Auto) 10.7 L Lymph # (Auto) 0.81 L [place] # (Auto) 0.09 L Band Neutrophils % Lymphocytes % Absolute Neutrophils D-Dimer Carbon Dioxide BUN POC Creatinine Glucose Calcium Magnesium GGT AST ALT Alkaline Phosphatase Lactate Dehydrogenase C-Reactive Protein 32.50 H NT-Pro-B Natriuret Pep Albumin Globulin Albumin/Globulin Ratio Triglycerides Procalcitonin 1.61 H 05/28/21 05/28/21 05/28/21 12:51 11:05 11:05 Hct MPV Neut % (Auto) Lymph % (Auto) Lymph # (Auto) [place] # (Auto) Band Neutrophils % Lymphocytes % Absolute Neutrophils D-Dimer 5.13 H Carbon Dioxide 20 L BUN POC Creatinine 1.3 H Glucose 128 H Calcium 8.2 L Magnesium GGT AST 61 H ALT 110 H Alkaline Phosphatase 168 H Lactate Dehydrogenase C-Reactive Protein NT-Pro-B Natriuret Pep 255.4 H Albumin 3.0 L Globulin Albumin/Globulin Ratio 0.9 L Triglycerides Procalcitonin 05/28/21 05/28/21 11:05 11:05 Hct MPV 10.8 H Neut % (Auto) 89.3 H Lymph % (Auto) 8.1 L Lymph # (Auto) 0.84 L [place] # (Auto) Band Neutrophils % 24 H Lymphocytes % 6 L Absolute Neutrophils 9.31 H D-Dimer Carbon Dioxide BUN POC Creatinine Glucose Calcium Magnesium GGT AST ALT Alkaline Phosphatase Lactate Dehydrogenase C-Reactive Protein NT-Pro-B Natriuret Pep Albumin Globulin Albumin/Globulin Ratio Triglycerides Procalcitonin Meds: Medications Acetaminophen (Acetaminophen 325 Mg Tablet) 650 mg PO Q4-6HP PRN; Protocol PRN Reason: Per Pain Protocol/Fever > 101 Last Admin: 05/30/21 08:57 Dose: 650 mg Documented by: Albuterol Sulfate (Albuterol Sulfate 200 Puff Inhaler) 1 - 2 puff INH Q4HP PRN PRN Reason: Shortness Of Breath Amlodipine Besylate (Amlodipine 5 Mg Tablet) 5 mg PO QDAY [facility] Bisacodyl (Bisacodyl 10 Mg Supp.Rect) 10 mg PA Q2-3DAYS PRN PRN Reason: Constipation Dexamethasone (Dexamethasone 4 Mg Tablet) 6 mg PO DAILY [facility] Last Admin: 05/30/21 08:17 Dose: 6 mg Documented by: Docusate Sodium (Docusate Sodium 100 Mg Capsule) 100 mg PO BID [facility] Last Admin: 05/30/21 07:39 Dose: Not Given Documented by: Enoxaparin Sodium (Enoxaparin 30 Mg/0.3 Ml Syringe) 30 mg SQ BID [facility] Last Admin: 05/30/21 08:16 Dose: 30 mg Documented by: Furosemide (Furosemide 40 Mg/4 Ml Vial) 20 mg IV BIDD [facility] Last Admin: 05/30/21 07:37 Dose: 20 mg Documented by: Guaifenesin/Codeine Phosphate (Guaifenesin/Codeine 10 Ml Udc) 10 ml PO Q4HP PRN PRN Reason: Cough Last Admin: 05/29/21 21:50 Dose: 10 ml Documented by: Hydralazine HCl (Hydralazine 20 Mg/Ml Vial) 10 mg IV Q4-6HP PRN PRN Reason: Hypertension Azithromycin 500 mg/ Dextrose 250 mls @ 250 mls/hr IV DAILY@1100 [facility]; Protocol Stop: 05/30/21 11:59 Last Admin: 05/30/21 09:09 Dose: 250 mls/hr Documented by: REMDESIVIR 100 mg/ Sodium (Chloride) 250 mls @ 500 mls/hr IV DAILY@1200 [facility] Stop: 06/01/21 12:29 Last Infusion: 05/29/21 13:47 Dose: Infused Documented by: Potassium Chloride 40 meq/ (Dextrose) 520 mls @ 130 mls/hr IV UD PRN PRN Reason: K+ = or < 3.5 Acetaminophen (Ofirmev) 650 mg in 65 mls @ 130 mls/hr IV Q6HP PRN; Protocol PRN Reason: Per Pain Protocol/Fever > 101 Magnesium Sulfate (Magnesium Sulfate) 2 gm in 50 mls @ 50 mls/hr IV UD PRN PRN Reason: MG = or < 1.7 Ceftriaxone Sodium 2 gm/ (Dextrose) 50 mls @ 100 mls/hr IV DAILY [facility]; Protocol Last Infusion: 05/30/21 10:00 Dose: Infused Documented by: Iron Carb/Multivit/Favor [employer]/Folic Acid (Multivit,Ther Iron,Ca,Fa & Min 1 Tablet) 1 tab PO DAILY [facility] Last Admin: 05/30/21 08:17 Dose: 1 tab Documented by: Levalbuterol HCl (Levalbuterol 0.63 Mg/3 Ml Ampul.Neb) 0.63 mg NEB Q4HP PRN PRN Reason: Shortness Of Breath Losartan Potassium (Losartan 50 Mg Tablet) 50 mg PO DAILY [facility] Melatonin (Melatonin 3 Mg Tablet) 3 mg PO HSP PRN PRN Reason: Insomnia Last Admin: 05/29/21 21:48 Dose: 3 mg Documented by: Metoprolol Tartrate (Metoprolol Tartrate 5 Mg/5 Ml Vial) 5 mg IV Q5M PRN PRN Reason: Heart Rate > 140 bpm Ondansetron HCl (Ondansetron 4 Mg Odt Tablet) 4 mg SL Q4-6HP PRN; Protocol PRN Reason: Nausea And Vomiting Ondansetron HCl (Ondansetron 4 Mg/2 Ml Vial) 4 mg IV Q4-6HP PRN; Protocol PRN Reason: Nausea And Vomiting Polyethylene Glycol (Polyethylene Glycol 3350 17 Gm Packet) 17 gm PO DAILYP PRN PRN Reason: Constipation Senna/Docusate Sodium (Sennosides/Docusate Sodium 1 Tab Tablet) 1 tab PO HS [facility] Last Admin: 05/29/21 21:50 Dose: Not Given Documented by: Sodium Chloride (0.9 % Sodium Chloride 10 Ml Syringe) 10 ml IV Q8 [facility] Last Admin: 05/30/21 05:37 Dose: 10 ml Documented by: A/P Narrative A/P Narrative: * COVID-19 pneumonia-status post Actemra 05/28, continue remdesivir dexamethasone/gentle diuresis. Clinical improvement noted. Transfer to medical floor * Acute hypoxic respiratory failure secondary to Covid pneumonia. Remains on 5 L oxygen. Slight worsening interval chest imaging since admission. * Acute lung injury-persistent bilateral infiltrates. Secondary to Covid pneumonia * Hypertension-on home medications * Prophylaxis twice daily enoxaparin Plan * Wean oxygen as tolerated * Transfer to medical floor * Remdesivir/dexamethasone/empiric antibiotics/thrombosis prophylaxis * Pre-existing medical condition management home meds * Directed therapies/nutrition support/early mobilization * Discharge planning per case management Time Spent With Patient Time: Total time spent is greater than 50% in coordination of care (as documented) at patient's floor/unit and/or counseling patient: Total time spent with greater than 50% in coordination of care (as documented) at patient's floor/unit and/or counseling patient:: Greater than 35 minutes QUALITY VTE Deep Vein Thrombosis/Pulmonary Embolism Present on Admission: No
[2021-05-30] MEDS: LOSARTAN 50 MG TABLET PO SCH (10:09)
[2021-05-30] MEDS: amLODIPine 5 MG TABLET PO SCH (10:09)
[2021-05-30 10:32] LABS: Neutrophils % (Auto) 68.4 % (38.0-78.0)
[2021-05-30] MEDS: REMDESIVIR 100 MG in 0.9 % SODIUM CHLORIDE 250 ML IV SCH (12:04)
--- NOTE | 2021-05-30 13:32 | Internal Med Progress Note ---
SUBJECTIVE Subjective Patient information: Note initiated : 05/30/21 at 1:28 pm Service Date, if different from initiated Date: [] Patient: Maryjane Ireland a 55 y/o F admitted on 05/28/21 for SOB . Chief Complaint: [] Interval history: Ms. Ireland is a 55 year old F with a history of hypertension who was recently diagnosed with Covid pneumonia on 05/24 now presents with worsening shortness of breath, fatigue, malaise, associated diarrhea and profound weakness. Patient completed [place] vaccination in June but has not taken a booster yet. She endorses to profound weakness limiting her functionality. Initial work-up in the ER was consistent with hypoxia requiring 4 L oxygen. Patient was started on dexamethasone/remdesivir and agrees for [facility] service was consulted for admission in light of above At the time of my evaluation patient is alert and oriented. She denies active distress and able to endorse history as above. Her symptoms started roughly 10 days prior to presentation with multiple family members affected. She denies joint pain, rash, headache, photophobia, productive sputum 05/29-patient seen in room, on 5 L oxygen. Appears stable with minimal worsening of hypoxia since admission. Status post Actemra 05/28, on remdesivir/dexamethasone. Creatinine down from 1.3-1, LFTs elevated downtrending. Procalcitonin 1.61, continue antibiotic coverage. Close hemodynamic monitoring. 05/30-patient seen in room sitting on the edge of bed, currently on 5 L oxygen. Continue antibiotics in the setting of multifocal infiltrates/elevated procalcitonin. On remdesivir/dexamethasone, status post Actemra, transfer to medical floor on continue telemetry monitoring. Slight clinical improvement noted. No fever chills, LFTs downtrending, continue nutrition support/therapies Constitutional Vitals: Vital Signs Temp Pulse Resp BP Pulse Ox 96.9 F L 75 12 142/81 96 05/30/21 10:35 05/30/21 10:35 05/30/21 10:35 05/30/21 10:35 05/30/21 10:35 Period Temp Pulse Resp BP Sys/Lott Pulse Ox Last 24 Hr 96.9 F-99.4 F 61-106 12-43 127-160/77-99 92-96 Intake and Output 05/29/21 05/30/21 05/30/21 21:59 05:59 13:59 Intake Total 820 675 2487 Output Total 626 824 7605 Balance 110 160 630 Weight 94.376 kg Intake & Output: Intake & Output 05/29/21 05/30/21 05/30/21 21:59 05:59 13:59 Intake Total 286 866 2032 Output Total 022 399 2054 Balance 110 160 630 Weight 94.376 kg Intake: Nourishment/Supplement quantity 240 (ml) IV 550 Zithromax 500 mg In Dextrose 5% 250 in Water 250 ml @ 250 mls/hr IV DAILY@1100 [facility] Rx#:[id number] Veklury 100 mg In Sodium 250 Chloride 0.9% 250 ml @ 500 mls/ hr IV DAILY@1200 [facility] Rx#: [id number] Rocephin 2 gm In Dextrose 5% in 50 Water 50 ml @ 100 mls/hr IV DAILY [facility] Rx#:[id number] Oral [phone] Output: Void Amount 500 400 Urine/Stool Mix 350 200 650 Other: Meal Dinner Breakfast Percent of Meal Consumed 100% 100% Feeding Ability Independent Independent Nourishment/Supplement name ensure Urine Appearance Clear Urine Color Bright Yellow Stool Size Moderate Stool Color Green Stool Consistency Liquid Liquid Watery Watery Loose # Bowel Movements 1 Exam: General: Alert, Awake, No acute Distress, obese Eyes/N/T: EOMI, Head/Neck: neck supple, CV: RRR, No murmurs, Pulm: Abd: soft, nontender, +BS x4 Ext: no clubbing/cyanosis/edema Neuro: Alert, no focal deficits, moves all extremities, Skin: warm/dry OBJ DATA Labs CBC & Chem 7: 05/30/21 05:10 05/30/21 05:10 Labs: Abnormal Lab Results 05/30/21 05/30/21 05/29/21 05:10 05:10 05:07 Hct 33.7 L MPV 11.1 H Neut % (Auto) Lymph % (Auto) Lymph # (Auto) [place] # (Auto) Band Neutrophils % Lymphocytes % Absolute Neutrophils D-Dimer Carbon Dioxide BUN 29 H 21 H POC Creatinine Glucose 128 H 141 H Calcium Magnesium 2.6 H GGT 163 H 187 H AST 44 H 48 H ALT 83 H 103 H Alkaline Phosphatase 146 H 159 H Lactate Dehydrogenase 441 H 385 H C-Reactive Protein NT-Pro-B Natriuret Pep Albumin 3.1 L Globulin 3.9 H Albumin/Globulin Ratio 0.9 L 0.8 L Triglycerides 180 H 198 H Procalcitonin 05/29/21 05/28/21 05/28/21 05:07 12:51 12:51 Hct MPV 10.8 H Neut % (Auto) 87.5 H Lymph % (Auto) 10.7 L Lymph # (Auto) 0.81 L [place] # (Auto) 0.09 L Band Neutrophils % Lymphocytes % Absolute Neutrophils D-Dimer Carbon Dioxide BUN POC Creatinine Glucose Calcium Magnesium GGT AST ALT Alkaline Phosphatase Lactate Dehydrogenase C-Reactive Protein 32.50 H NT-Pro-B Natriuret Pep Albumin Globulin Albumin/Globulin Ratio Triglycerides Procalcitonin 1.61 H 05/28/21 05/28/21 05/28/21 12:51 11:05 11:05 Hct MPV Neut % (Auto) Lymph % (Auto) Lymph # (Auto) [place] # (Auto) Band Neutrophils % Lymphocytes % Absolute Neutrophils D-Dimer 5.13 H Carbon Dioxide 20 L BUN POC Creatinine 1.3 H Glucose 128 H Calcium 8.2 L Magnesium GGT AST 61 H ALT 110 H Alkaline Phosphatase 168 H Lactate Dehydrogenase C-Reactive Protein NT-Pro-B Natriuret Pep 255.4 H Albumin 3.0 L Globulin Albumin/Globulin Ratio 0.9 L Triglycerides Procalcitonin 05/28/21 05/28/21 11:05 11:05 Hct MPV 10.8 H Neut % (Auto) 89.3 H Lymph % (Auto) 8.1 L Lymph # (Auto) 0.84 L [place] # (Auto) Band Neutrophils % 24 H Lymphocytes % 6 L Absolute Neutrophils 9.31 H D-Dimer Carbon Dioxide BUN POC Creatinine Glucose Calcium Magnesium GGT AST ALT Alkaline Phosphatase Lactate Dehydrogenase C-Reactive Protein NT-Pro-B Natriuret Pep Albumin Globulin Albumin/Globulin Ratio Triglycerides Procalcitonin Meds: Medications Acetaminophen (Acetaminophen 325 Mg Tablet) 650 mg PO Q4-6HP PRN; Protocol PRN Reason: Per Pain Protocol/Fever > 101 Last Admin: 05/30/21 08:57 Dose: 650 mg Documented by: Albuterol Sulfate (Albuterol Sulfate 200 Puff Inhaler) 1 - 2 puff INH Q4HP PRN PRN Reason: Shortness Of Breath Amlodipine Besylate (Amlodipine 5 Mg Tablet) 5 mg PO QDAY [facility] Last Admin: 05/30/21 10:09 Dose: 5 mg Documented by: Bisacodyl (Bisacodyl 10 Mg Supp.Rect) [address] Q2-3DAYS PRN PRN Reason: Constipation Dexamethasone (Dexamethasone 4 Mg Tablet) 6 mg PO DAILY [facility] Last Admin: 05/30/21 08:17 Dose: 6 mg Documented by: Docusate Sodium (Docusate Sodium 100 Mg Capsule) 100 mg PO BID [facility] Last Admin: 05/30/21 07:39 Dose: Not Given Documented by: Enoxaparin Sodium (Enoxaparin 30 Mg/0.3 Ml Syringe) 30 mg SQ BID [facility] Last Admin: 05/30/21 08:16 Dose: 30 mg Documented by: Furosemide (Furosemide 40 Mg/4 Ml Vial) 20 mg IV BIDD [facility] Last Admin: 05/30/21 07:37 Dose: 20 mg Documented by: Guaifenesin/Codeine Phosphate (Guaifenesin/Codeine 10 Ml Udc) 10 ml PO Q4HP PRN PRN Reason: Cough Last Admin: 05/29/21 21:50 Dose: 10 ml Documented by: Hydralazine HCl (Hydralazine 20 Mg/Ml Vial) 10 mg IV Q4-6HP PRN PRN Reason: Hypertension REMDESIVIR 100 mg/ Sodium (Chloride) 250 mls @ 500 mls/hr IV DAILY@1200 [facility] Stop: 06/01/21 12:29 Last Infusion: 05/30/21 13:00 Dose: Infused Documented by: Potassium Chloride 40 meq/ (Dextrose) 520 mls @ 130 mls/hr IV UD PRN PRN Reason: K+ = or < 3.5 Acetaminophen (Ofirmev) 650 mg in 65 mls @ 130 mls/hr IV Q6HP PRN; Protocol PRN Reason: Per Pain Protocol/Fever > 101 Magnesium Sulfate (Magnesium Sulfate) 2 gm in 50 mls @ 50 mls/hr IV UD PRN PRN Reason: MG = or < 1.7 Ceftriaxone Sodium 2 gm/ (Dextrose) 50 mls @ 100 mls/hr IV DAILY [facility]; Protocol Last Infusion: 05/30/21 10:00 Dose: Infused Documented by: Iron Carb/Multivit/[place]/Folic Acid (Multivit,Ther Iron,Ca,Fa & Min 1 Tablet) 1 tab PO DAILY [facility] Last Admin: 05/30/21 08:17 Dose: 1 tab Documented by: Levalbuterol HCl (Levalbuterol 0.63 Mg/3 Ml Ampul.Neb) 0.63 mg NEB Q4HP PRN PRN Reason: Shortness Of Breath Losartan Potassium (Losartan 50 Mg Tablet) 50 mg PO DAILY [facility] Last Admin: 05/30/21 10:09 Dose: 50 mg Documented by: Melatonin (Melatonin 3 Mg Tablet) 3 mg PO HSP PRN PRN Reason: Insomnia Last Admin: 05/29/21 21:48 Dose: 3 mg Documented by: Metoprolol Tartrate (Metoprolol Tartrate 5 Mg/5 Ml Vial) 5 mg IV Q5M PRN PRN Reason: Heart Rate > 140 bpm Ondansetron HCl (Ondansetron 4 Mg Odt Tablet) 4 mg SL Q4-6HP PRN; Protocol PRN Reason: Nausea And Vomiting Ondansetron HCl (Ondansetron 4 Mg/2 Ml Vial) 4 mg IV Q4-6HP PRN; Protocol PRN Reason: Nausea And Vomiting Polyethylene Glycol (Polyethylene Glycol 3350 17 Gm Packet) 17 gm PO DAILYP PRN PRN Reason: Constipation Senna/Docusate Sodium (Sennosides/Docusate Sodium 1 Tab Tablet) 1 tab PO HS [facility] Last Admin: 05/29/21 21:50 Dose: Not Given Documented by: Sodium Chloride (0.9 % Sodium Chloride 10 Ml Syringe) 10 ml IV Q8 [facility] Last Admin: 05/30/21 12:04 Dose: 10 ml Documented by: A/P Narrative A/P Narrative: A: *COVID-19 pneumonia w/ALI: *Acute hypoxic respiratory failure: secondary to Covid pneumonia -on 5L oxygen *Hypertension: on home medications Plan: -Wean oxygen as tolerated -Remdesivir/dexamethasone, s/p Actemra -empiric abx -Directed therapies/nutrition support/early mobilization/proning -prn lasix -cont home norvasc/ARB -ppx: lovenox Time Spent With Patient Time: Total time spent is greater than 50% in coordination of care (as documented) at patient's floor/unit and/or counseling patient: QUALITY VTE Deep Vein Thrombosis/Pulmonary Embolism Present on Admission: No
[2021-05-30] MEDS: SENNOSIDES/DOCUSATE SODIUM 1 TAB TABLET PO SCH (21:02)
[2021-05-31] MEDS: 0.9 % SODIUM CHLORIDE 10 ML SYRINGE IV SCH ×4 (05:11→20:38)
--- NOTE | 2021-05-31 07:43 | Internal Med Progress Note ---
SUBJECTIVE Subjective Patient information: Note initiated : 05/31/21 at 7:42 am Service Date, if different from initiated Date: [] Patient: Maryjane Ireland a 55 y/o F admitted on 05/28/21 for SOB . Chief Complaint: [] Interval history: Ms. Ireland is a 55 year old F with a history of hypertension who was recently diagnosed with Covid pneumonia on 05/24 now presents with worsening shortness of breath, fatigue, malaise, associated diarrhea and profound weakness. Patient completed [place] vaccination in June but has not taken a booster yet. She endorses to profound weakness limiting her functionality. Initial work-up in the ER was consistent with hypoxia requiring 4 L oxygen. Patient was started on dexamethasone/remdesivir and agrees for [facility] service was consulted for admission in light of above At the time of my evaluation patient is alert and oriented. She denies active distress and able to endorse history as above. Her symptoms started roughly 10 days prior to presentation with multiple family members affected. She denies joint pain, rash, headache, photophobia, productive sputum 05/29-patient seen in room, on 5 L oxygen. Appears stable with minimal worsening of hypoxia since admission. Status post Actemra 05/28, on remdesivir/dexamethasone. Creatinine down from 1.3-1, LFTs elevated downtrending. Procalcitonin 1.61, continue antibiotic coverage. Close hemodynamic monitoring. 05/30-patient seen in room sitting on the edge of bed, currently on 5 L oxygen. Continue antibiotics in the setting of multifocal infiltrates/elevated procalcitonin. On remdesivir/dexamethasone, status post Actemra, transfer to medical floor on continue telemetry monitoring. Slight clinical improvement noted. No fever chills, LFTs downtrending, continue nutrition support/therapies. 05/31 Turn oxygen down to 3.5 L this morning, will monitor. Patient feels like she is gradually improving. Stools but no diarrhea. She has a cough that is occasionally dry occasionally productive of white-yellow sputum. Review of Systems: denies headache/fever/chills/nausea/vomiting/chest or abdominal pain/. Otherwise see above. Constitutional Vitals: Vital Signs Temp Pulse Resp BP Pulse Ox 97.7 F 64 18 133/75 95 05/31/21 03:37 05/31/21 03:37 05/31/21 03:37 05/31/21 03:37 05/31/21 03:37 Period Temp Pulse Resp BP Sys/Lott Pulse Ox Last 24 Hr 96.2 F-97.7 F 64-80 12-30 125-159/75-90 94-96 Intake and Output 05/30/21 05/31/21 05/31/21 21:59 05:59 13:59 Intake Total 237 700 Output Total 400 Balance -163 700 Weight 96.672 kg Intake & Output: Intake & Output 05/30/21 05/31/21 05/31/21 21:59 05:59 13:59 Intake Total 237 700 Output Total 400 Balance -163 700 Weight 96.672 kg Intake: Oral 237 700 Output: Void Amount 400 Other: Meal Dinner Percent of Meal Consumed 100% Feeding Ability Independent Urine Appearance Clear Urine Color Bright Yellow Stool Size Moderate Small Stool Color Brown Brown Stool Consistency Soft Loose Loose # Voids 1 # Bowel Movements 1 1 Exam: General: Alert, Awake, No acute Distress, obese Eyes/N/T: EOMI, Head/Neck: neck supple, CV: RRR, No murmurs, Pulm: rales/rhonchi b/l, no wheezing Abd: soft, nontender, +BS x4 Ext: no clubbing/cyanosis/edema Neuro: Alert, no focal deficits, moves all extremities, Skin: warm/dry OBJ DATA Labs CBC & Chem 7: 05/30/21 05:10 05/31/21 06:38 Labs: Abnormal Lab Results 05/30/21 05/30/21 05/29/21 05:10 05:10 05:07 Hct 33.7 L MPV 11.1 H Neut % (Auto) Lymph % (Auto) Lymph # (Auto) [place] # (Auto) Band Neutrophils % Lymphocytes % Absolute Neutrophils D-Dimer Carbon Dioxide BUN 29 H 21 H POC Creatinine Glucose 128 H 141 H Calcium Magnesium 2.6 H GGT 163 H 187 H AST 44 H 48 H ALT 83 H 103 H Alkaline Phosphatase 146 H 159 H Lactate Dehydrogenase 441 H 385 H C-Reactive Protein NT-Pro-B Natriuret Pep Albumin 3.1 L Globulin 3.9 H Albumin/Globulin Ratio 0.9 L 0.8 L Triglycerides 180 H 198 H Procalcitonin 05/29/21 05/28/21 05/28/21 05:07 12:51 12:51 Hct MPV 10.8 H Neut % (Auto) 87.5 H Lymph % (Auto) 10.7 L Lymph # (Auto) 0.81 L [place] # (Auto) 0.09 L Band Neutrophils % Lymphocytes % Absolute Neutrophils D-Dimer Carbon Dioxide BUN POC Creatinine Glucose Calcium Magnesium GGT AST ALT Alkaline Phosphatase Lactate Dehydrogenase C-Reactive Protein 32.50 H NT-Pro-B Natriuret Pep Albumin Globulin Albumin/Globulin Ratio Triglycerides Procalcitonin 1.61 H 05/28/21 05/28/21 05/28/21 12:51 11:05 11:05 Hct MPV Neut % (Auto) Lymph % (Auto) Lymph # (Auto) [place] # (Auto) Band Neutrophils % Lymphocytes % Absolute Neutrophils D-Dimer 5.13 H Carbon Dioxide 20 L BUN POC Creatinine 1.3 H Glucose 128 H Calcium 8.2 L Magnesium GGT AST 61 H ALT 110 H Alkaline Phosphatase 168 H Lactate Dehydrogenase C-Reactive Protein NT-Pro-B Natriuret Pep 255.4 H Albumin 3.0 L Globulin Albumin/Globulin Ratio 0.9 L Triglycerides Procalcitonin 05/28/21 05/28/21 11:05 11:05 Hct MPV 10.8 H Neut % (Auto) 89.3 H Lymph % (Auto) 8.1 L Lymph # (Auto) 0.84 L [place] # (Auto) Band Neutrophils % 24 H Lymphocytes % 6 L Absolute Neutrophils 9.31 H D-Dimer Carbon Dioxide BUN POC Creatinine Glucose Calcium Magnesium GGT AST ALT Alkaline Phosphatase Lactate Dehydrogenase C-Reactive Protein NT-Pro-B Natriuret Pep Albumin Globulin Albumin/Globulin Ratio Triglycerides Procalcitonin Meds: Medications Acetaminophen (Acetaminophen 325 Mg Tablet) 650 mg PO Q4-6HP PRN; Protocol PRN Reason: Per Pain Protocol/Fever > 101 Last Admin: 05/30/21 18:35 Dose: 650 mg Documented by: Albuterol Sulfate (Albuterol Sulfate 200 Puff Inhaler) 1 - 2 puff INH Q4HP PRN PRN Reason: Shortness Of Breath Amlodipine Besylate (Amlodipine 5 Mg Tablet) 5 mg PO QDAY NOÉ Last Admin: 05/30/21 10:09 Dose: 5 mg Documented by: Bisacodyl (Bisacodyl 10 Mg Supp.Rect) 10 mg OR Q2-3DAYS PRN PRN Reason: Constipation Dexamethasone (Dexamethasone 4 Mg Tablet) 6 mg PO DAILY [facility] Last Admin: 05/30/21 08:17 Dose: 6 mg Documented by: Docusate Sodium (Docusate Sodium 100 Mg Capsule) 100 mg PO BID [facility] Last Admin: 05/30/21 21:02 Dose: Not Given Documented by: Enoxaparin Sodium (Enoxaparin 30 Mg/0.3 Ml Syringe) 30 mg SQ BID [facility] Last Admin: 05/30/21 21:03 Dose: 30 mg Documented by: Guaifenesin/Codeine Phosphate (Guaifenesin/Codeine 10 Ml Udc) 10 ml PO Q4HP PRN PRN Reason: Cough Last Admin: 05/29/21 21:50 Dose: 10 ml Documented by: Hydralazine HCl (Hydralazine 20 Mg/Ml Vial) 10 mg IV Q4-6HP PRN PRN Reason: Hypertension REMDESIVIR 100 mg/ Sodium (Chloride) 250 mls @ 500 mls/hr IV DAILY@1200 [facility] Stop: 06/01/21 12:29 Last Infusion: 05/30/21 13:00 Dose: Infused Documented by: Potassium Chloride 40 meq/ (Dextrose) 520 mls @ 130 mls/hr IV UD PRN PRN Reason: K+ = or < 3.5 Acetaminophen (Ofirmev) 650 mg in 65 mls @ 130 mls/hr IV Q6HP PRN; Protocol PRN Reason: Per Pain Protocol/Fever > 101 Magnesium Sulfate (Magnesium Sulfate) 2 gm in 50 mls @ 50 mls/hr IV UD PRN PRN Reason: MG = or < 1.7 Ceftriaxone Sodium 2 gm/ (Dextrose) 50 mls @ 100 mls/hr IV DAILY [facility]; Protocol Last Infusion: 05/30/21 10:00 Dose: Infused Documented by: Iron Carb/Multivit/[place]/Folic Acid (Multivit,Ther Iron,Ca,Fa & Min 1 Tablet) 1 tab PO DAILY [facility] Last Admin: 05/30/21 08:17 Dose: 1 tab Documented by: Levalbuterol HCl (Levalbuterol 0.63 Mg/3 Ml Ampul.Neb) 0.63 mg NEB Q4HP PRN PRN Reason: Shortness Of Breath Losartan Potassium (Losartan 50 Mg Tablet) 50 mg PO DAILY [facility] Last Admin: 05/30/21 10:09 Dose: 50 mg Documented by: Melatonin (Melatonin 3 Mg Tablet) 3 mg PO HSP PRN PRN Reason: Insomnia Last Admin: 05/29/21 21:48 Dose: 3 mg Documented by: Metoprolol Tartrate (Metoprolol Tartrate 5 Mg/5 Ml Vial) 5 mg IV Q5M PRN PRN Reason: Heart Rate > 140 bpm Ondansetron HCl (Ondansetron 4 Mg Odt Tablet) 4 mg SL Q4-6HP PRN; Protocol PRN Reason: Nausea And Vomiting Ondansetron HCl (Ondansetron 4 Mg/2 Ml Vial) 4 mg IV Q4-6HP PRN; Protocol PRN Reason: Nausea And Vomiting Polyethylene Glycol (Polyethylene Glycol 3350 17 Gm Packet) 17 gm PO DAILYP PRN PRN Reason: Constipation Senna/Docusate Sodium (Sennosides/Docusate Sodium 1 Tab Tablet) 1 tab PO HS NOÉ Last Admin: 05/30/21 21:02 Dose: Not Given Documented by: Sodium Chloride (0.9 % Sodium Chloride 10 Ml Syringe) 10 ml IV Q8 [facility] Last Admin: 05/31/21 05:11 Dose: 10 ml Documented by: A/P Narrative A/P Narrative: A: *COVID-19 pneumonia w/ALI: *Acute hypoxic respiratory failure: secondary to Covid pneumonia -on 5L oxygen with sats mid 90's, will titrate down O2 *Hypertension: on home medications Plan: -Wean oxygen as tolerated -Remdesivir/dexamethasone, s/p Actemra -empiric abx -Directed therapies/nutrition support/early mobilization/proning -prn lasix -cont home norvasc/ARB -ppx: lovenox Time Spent With Patient Time: Total time spent is greater than 50% in coordination of care (as documented) at patient's floor/unit and/or counseling patient: QUALITY VTE Deep Vein Thrombosis/Pulmonary Embolism Present on Admission: No
[2021-05-31 09:03] LABS: ALT/SGPT 74 U/L (<40); AST/SGOT 41 U/L (<32); Albumin 3.4 gm/dL (3.2-5.2); Albumin/Globulin Ratio 0.9 (1.0-2.3); Alkaline Phosphatase 138 U/L (39-117); Bilirubin,Direct < 0.2 mg/dL (0-0.3); Bilirubin,Total 0.3 mg/dL (0.1-1.0); Blood Urea Nitrogen 32 mg/dL (6-20); Calcium 9.5 mg/dL (8.6-10.4); Carbon Dioxide 29 mmol/L (22-30); Chloride 100 mmol/L (96-108); Glomerular Filtration Rate 83; Glucose 86 mg/dL (70-105); Lactate Dehydrogenase 525 U/L (135-225); Phosphorous 3.3 mg/dL (2.5-4.5); Triglycerides 234 mg/dL (<150); Uric Acid 6.5 mg/dL (2.5-8.0)
[2021-05-31] MEDS: DOCUSATE SODIUM 100 MG CAPSULE PO SCH (09:03)
[2021-05-31] MEDS: cefTRIAXone 2 GM in DEXTROSE 5% IN WATER 50 ML IV SCH (09:23)
[2021-05-31] MEDS: MULTIVIT,THER IRON,CA,FA & MIN 1 TABLET PO SCH (09:26)
[2021-05-31] MEDS: DEXAMETHASONE 4 MG TABLET PO SCH (09:27)
[2021-05-31] MEDS: amLODIPine 5 MG TABLET PO SCH (09:27)
[2021-05-31] MEDS: LOSARTAN 50 MG TABLET PO SCH (09:27)
[2021-05-31] MEDS: ACETAMINOPHEN 325 MG TABLET PO PRN ×2 (09:28→16:43)
[2021-05-31] MEDS: ENOXAPARIN 30 MG/0.3 ML SYRINGE SQ SCH ×2 (09:29→20:38)
--- NOTE | 2021-05-31 10:02 | Discharge Summary ---
Discharge Provider Provider Patient information: Note initiated : 05/31/21 at 10:00 am Service Date, if different from initiated Date: [] Patient: Maryjane Ireland a 55 y/o F admitted on 05/28/21 for SOB . Chief Complaint: [] Date of admission: 05/28/21 15:25 Discharge date: 06/01/21 Primary care physician: Dulce Dominguez Consults: 05/28/21 Consult to Physician [CONS] Stat Comment: Consulting Provider: Cj Mcneil Reason For Exam: Physician to Consult Discharge Meds Discharge Medications Home Medications amlodipine 5 mg tablet 5 mg PO QDAY 05/29/21 [History Confirmed 05/29/21 Last Taken 05/28/21] losartan 100 mg tablet 100 mg PO QDAY 05/29/21 [History Confirmed 05/29/21 Last Taken 05/28/21] COURSE Hospital Course Hospital course: Ms. Ireland is a 55 year old F with a history of hypertension who was recently diagnosed with Covid pneumonia on 05/24 now presents with worsening shortness of breath, fatigue, malaise, associated diarrhea and profound weakness. Patient completed [place] vaccination in June but has not taken a booster yet. She endorses to profound weakness limiting her functionality. Initial work-up in the ER was consistent with hypoxia requiring 4 L oxygen. Patient was started on dexamethasone/remdesivir and agrees for [facility] service was consulted for admission in light of above At the time of my evaluation patient is alert and oriented. She denies active distress and able to endorse history as above. Her symptoms started roughly 10 days prior to presentation with multiple family members affected. She denies joint pain, rash, headache, photophobia, productive sputum 05/29-patient seen in room, on 5 L oxygen. Appears stable with minimal worsening of hypoxia since admission. Status post Actemra 05/28, on remdesivir/dexamethasone. Creatinine down from 1.3-1, LFTs elevated downtrending. Procalcitonin 1.61, continue antibiotic coverage. Close hemodyna [place] monitoring. 05/30-patient seen in room sitting on the edge of bed, currently on 5 L oxygen. Continue antibiotics in the setting of multifocal infiltrates/elevated procalcitonin. On remdesivir/dexamethasone, status post Actemra, transfer to medical floor on continue telemetry monitoring. Slight clinical improvement noted. No fever chills, LFTs downtrending, continue nutrition support/therapies. 05/31 Turn oxygen down to 3.5 L this morning, will monitor. Patient feels like she is gradually improving. Stools but no diarrhea. She has a cough that is occasionally dry occasionally productive of white-yellow sputum. 06/01 Doing well down to 2 L with sats at 96%. Stable for discharge will have home oxygen evaluation by RT. A: *COVID-19 pneumonia w/ALI: *Acute hypoxic respiratory failure: secondary to Covid pneumonia *Hypertension: on home medications *obesity: Discharge diagnosis: Covid pneumonia with acute lung injury acute hypoxic respite failure Secondary discharge diagnosis: Hypertension obesity Time Spent with Patient Time attestation: Total time spent providing and/or coordinating discharge services: Time spent: Greater than 30 minutes EXAM Constitutional Vitals: Temp Pulse Resp BP Pulse Ox 96.7 F L 73 18 135/80 97 05/31/21 08:00 05/31/21 08:00 05/31/21 08:00 05/31/21 08:00 05/31/21 08:00 Discharge Data Data Completed and Pending Labs on day of discharge: Labs from last 24 hours 05/31/21 05/31/21 05/30/21 06:38 06:38 05:10 Neut % (Auto) 68.4 Sodium 139 Potassium 3.7 Chloride 100 Carbon Dioxide 29 Anion Gap 10.0 BUN 32 H Creatinine 0.8 GFR Calculation 83 Glucose 86 Uric Acid 6.5 Calcium 9.5 Phosphorus 3.3 Magnesium 2.5 Total Bilirubin 0.3 Direct Bilirubin < 0.2 GGT 160 H AST 41 H ALT 74 H Alkaline Phosphatase 138 H Lactate Dehydrogenase 525 H Total Protein 7.4 Albumin 3.4 Globulin 4.0 H Albumin/Globulin Ratio 0.9 L Triglycerides 234 H Procalcitonin 0.60 H Preliminary micro results at discharge 05/28/21 11:15 Blood Culture - Preliminary Blood 05/28/21 11:05 Blood Culture - Preliminary Blood Discharge Plan Patient/Caregiver Discharge Instructions Activity: increase activity as tolerated Diet: Regular Diet Activity Restrictions/Additional Instructions: Patient will require home oxygen Prescriptions: Continued amlodipine 5 mg tablet 5 mg PO QDAY 0RF losartan 100 mg tablet 100 mg PO QDAY 0RF Follow Up Plan Follow up with: Dulce Dominguez MD [Primary Care Provider] - Patient Disposition: Home, Self-Care Prognosis: Fair Overall status at discharge: patient is progressing back to baseline Discharge Orders: Discharge Order (Routine); Ordered 06/01/21 Ordered By: Mahesh Carroll [facility] VTE Deep Vein Thrombosis/Pulmonary Embolism Present on Admission: No
[2021-05-31] MEDS: REMDESIVIR 100 MG in 0.9 % SODIUM CHLORIDE 250 ML IV SCH (12:50)
[2021-05-31] MEDS: SENNOSIDES/DOCUSATE SODIUM 1 TAB TABLET PO SCH (20:39)
[2021-06-01] MEDS: 0.9 % SODIUM CHLORIDE 10 ML SYRINGE IV SCH (05:11)
[2021-06-01 08:39] LABS: ALT/SGPT 61 U/L (<40); AST/SGOT 37 U/L (<32); Albumin 3.3 gm/dL (3.2-5.2); Alkaline Phosphatase 127 U/L (39-117); Bilirubin,Direct < 0.2 mg/dL (0-0.3); Bilirubin,Total 0.4 mg/dL (0.1-1.0); Blood Urea Nitrogen 20 mg/dL (6-20); Calcium 8.8 mg/dL (8.6-10.4); Carbon Dioxide 28 mmol/L (22-30); Chloride 103 mmol/L (96-108); Globulin 3.4 gm/dL (2.2-3.7); Glomerular Filtration Rate 83; Glucose 86 mg/dL (70-105); Lactate Dehydrogenase 460 U/L (135-225); Phosphorous 2.8 mg/dL (2.5-4.5); Triglycerides 248 mg/dL (<150); Uric Acid 5.1 mg/dL (2.5-8.0)
[2021-06-01] MEDS: amLODIPine 5 MG TABLET PO SCH (08:50)
[2021-06-01] MEDS: MULTIVIT,THER IRON,CA,FA & MIN 1 TABLET PO SCH (08:50)
[2021-06-01] MEDS: LOSARTAN 50 MG TABLET PO SCH (08:50)
[2021-06-01] MEDS: DEXAMETHASONE 4 MG TABLET PO SCH (08:50)
[2021-06-01] MEDS: ENOXAPARIN 30 MG/0.3 ML SYRINGE SQ SCH (08:51)
[2021-06-01] MEDS: cefTRIAXone 2 GM in DEXTROSE 5% IN WATER 50 ML IV SCH (08:52)
[2021-06-01] MEDS ORDERED: FLU VACC QS2021-22(6MOS UP)/PF 60 MCG/0.5 ML SYRINGE IM ONE ×2 (10:00→10:45)
[2021-06-01] MEDS: REMDESIVIR 100 MG in 0.9 % SODIUM CHLORIDE 250 ML IV SCH (11:00)
== END 2021-06-01 14:31 | disposition home or self-care (01) | DRG 177 ==
LOC: ED 10:39 → ICU 15:25 → MEDSUR 05-30 10:23
PROVIDERS: ADMIT Internal Medicine; ATTEND Internal Medicine